=== PATIENT | female | born 1990 | race Caucasian/White ===

== ENCOUNTER 2016-08-26 11:33 | Emergency (ER) | payer OTHER ==
[2016-08-26 12:57] VITALS: BP 110/66
--- NOTE | 2016-08-26 13:12 | UC ---
Throat Pain/Nasal Yuri HPI - HPI Summary HPI Summary: SORE THROAT X 4 DAYS + COUGH, + NASAL CONGESTION NO FEVER. - History of Current Complaint Chief Complaint: UCRespiratory Stated Complaint: THROAT,COUGH Time Seen by Provider: 08/26/16 12:44 Hx Obtained From: Patient Hx Last Menstrual Period: 08/11/16 Onset/Duration: Gradual Onset, Lasting Days - 4, Still Present Severity: Moderate Cough: Nonproductive Associated Signs & Symptoms: Positive: Nasal Discharge. Negative: Wheezing, Hoarseness, Fever, Rash - Allergies/Home Medications Allergies/Adverse Reactions: Allergies Allergy/AdvReac Type Severity Reaction Status Date / Time Cefprozil [From Cefzil] Allergy Severe Hives Verified 04/02/15 11:05 Levofloxacin [From Levaquin] Allergy Severe Hives Verified 04/02/15 11:05 Codeine Allergy Mild Hives Verified 04/02/15 11:05 [From Tylenol with Codeine #3] Home Medications: Home Medications Dextromethorphan-Phenylephrine [Day Time Multi-Symptom Co] 2 cap PO PRN [History] Nexplanon IMPLANT DAILY 08/26/16 [History] PMH/Surg Hx/FS Hx/Imm Hx Respiratory History Of: Reports: Asthma - Surgical History Surgical History: Yes Surgery Procedure, Year, and Place: , 2009, [facility] - Family History Known Family History: Negative: Diabetes - Social History Alcohol Use: None Substance Use Type: None Smoking Status (MU): Light Every Day Tobacco Smoker Type: Cigarettes Amount Used/How Often: 1 PACK weekly Length of Time of Smoking/Using Tobacco: started at age 20 Have You Smoked in the Last Year: Yes Review of Systems Constitutional: Negative Skin: Negative Eyes: Negative ENT: Sore Throat, Nasal Discharge Respiratory: Cough Cardiovascular: Negative Gastrointestinal: Negative Genitourinary: Negative Motor: Negative All Other Systems Reviewed And Are Negative: Yes Physical Exam Triage Information Reviewed: Yes Appearance: Well-Appearing, No Pain Distress, Well-Nourished Vital Signs: Initial Vital Signs Temp 99 F 08/26/16 12:52 Pulse 50 08/26/16 12:52 Resp 14 08/26/16 12:52 BP 110/66 08/26/16 12:52 Pulse Ox 100 08/26/16 12:52 Vital Signs Reviewed: Yes Eye Exam: Normal Eyes: Positive: Conjunctiva Clear ENT: Positive: Normal ENT inspection, Hearing grossly normal, Pharyngeal erythema, Nasal congestion, TMs normal. Negative: Nasal drainage Neck exam: Normal Neck: Positive: Supple, Nontender, No Lymphadenopathy Respiratory: Positive: Chest non-tender, Lungs clear, Normal breath sounds Cardiovascular: Positive: RRR, No Murmur, Pulses Normal Abdominal Exam: Normal Neurological Exam: Normal Neurological: Positive: Alert Skin Exam: Normal Throat Pain/Nasal Course/Dx - Differential Dx/Diagnosis Provider Diagnoses: VIRAL PHARYNGITIS Discharge - Discharge Plan Condition: Stable Disposition: HOME Patient Education Materials: Pharyngitis (ED) Additional Instructions: NEGATIVE RAPID STREP VIRAL PHARYNGITIS
== END 2016-08-26 13:40 | disposition home or self-care (01) ==
LOC: UCCORT 11:33
DX: J02.9 Acute pharyngitis, unspecified (principal); Z88.1 Allergy status to other antibiotic agents; Z55.2 Failed school examinations; F17.210 Nicotine dependence, cigarettes, uncomplicated
CPT/HCPCS: 87651; 99211; G0463

== ENCOUNTER 2016-09-01 14:50 | Emergency (ER) | payer OTHER ==
[2016-09-01 17:01] VITALS: BP 95/69
--- NOTE | 2016-09-01 22:08 | UC ---
Respiratory Complaint HPI - HPI Summary HPI Summary: Patient arrives with CC of coughing fits since 2 weeks ago. They are now keeping her from sleep and are hurting her chest wall and back. She was seen in UC last week and diagnosed with URI. She was not given anything, but now states all symptoms are becoming worse. Denies congestion. Cough is a dry cough and come in fits. Worse at night, better in cold air. Denies N/V/C/D. Associated LEIGH during cough. - History of Current Complaint Chief Complaint: UCRespiratory Stated Complaint: COUGH,CHEST CONGESTION (SEEN LAST WEEK) Time Seen by Provider: 09/01/16 17:01 Hx Obtained From: Patient Hx Last Menstrual Period: 08/11/16 ?: No Onset/Duration: Gradual Onset Severity Initially: Severe Severity Currently: Severe Pain Intensity: 0 Pain Scale Used: 0-10 Numeric Character: Cough: Nonproductive Aggravating Factors: Recumbent Position Alleviating Factors: Bronchodilator, Upright Position Associated Signs And Symptoms: Positive: URI - Risk Factors Pulmonary Embolism Risk Factors: Negative Cardiac Risk Factors: Negative Pseudomonas Risk Factors: Negative Tuberculosis Risk Factors: Negative - Allergies/Home Medications Allergies/Adverse Reactions: Allergies Allergy/AdvReac Type Severity Reaction Status Date / Time Cefprozil [From Cefzil] Allergy Severe Hives Verified 09/01/16 16:57 Levofloxacin [From Levaquin] Allergy Severe Hives Verified 09/01/16 16:57 Codeine Allergy Mild Hives Verified 09/01/16 16:57 [From Tylenol with Codeine #3] Home Medications: Home Medications Phenylephrine-Brompheniramine- [Dimetapp Dm Cold & Cough 2.5-1-5 mg/5Ml] 1 tab PRN 09/01/16 [History] PMH/Surg Hx/FS Hx/Imm Hx Previously Healthy: Yes Respiratory History Of: Reports: Asthma - Surgical History Surgical History: Yes Surgery Procedure, Year, and Place: , 2009, [facility] - Family History Known Family History: Negative: Diabetes - Social History Occupation: Employed Full-time Lives: With Family Alcohol Use: None Substance Use Type: None Smoking Status (MU): Light Every Day Tobacco Smoker Type: Cigarettes Amount Used/How Often: 3 cigs/day Length of Time of Smoking/Using Tobacco: started at age 20 Have You Smoked in the Last Year: Yes - Immunization History Most Recent Influenza Vaccination: 2016 Review of Systems Constitutional: Fatigue Skin: Negative ENT: Negative Respiratory: Shortness Of Breath, Cough Cardiovascular: Chest Pain - chest wall pain Gastrointestinal: Negative Motor: Negative Neurovascular: Negative Musculoskeletal: Myalgia Neurological: Headache All Other Systems Reviewed And Are Negative: Yes Physical Exam Triage Information Reviewed: Yes Appearance: Well-Appearing, No Pain Distress Vital Signs: Initial Vital Signs Temp 98.5 F 09/01/16 16:58 Pulse 52 09/01/16 16:58 Resp 18 09/01/16 16:58 BP 95/69 09/01/16 16:58 Pulse Ox 98 09/01/16 16:58 Eye Exam: Normal Eyes: Positive: Conjunctiva Clear Dental Exam: Normal Neck exam: Normal Neck: Positive: Supple, Nontender Respiratory: Positive: Chest non-tender, Lungs clear Cardiovascular Exam: Normal Cardiovascular: Positive: RRR Musculoskeletal: Positive: Strength Intact, ROM Intact Neurological Exam: Normal Psychological Exam: Normal Psychological: Positive: Normal Response To Family Skin Exam: Normal UC Diagnostic Evaluation - Laboratory O2 Sat by Pulse Oximetry: 98 Respiratory Course/Dx - Course Course Of Treatment: Patient given short course 5 day prednisone, robitussin with codeine and an albuteral inhaler. Patient will follow up with PCP if symptoms become worse. - Differential Dx/Diagnosis Differential Diagnosis/HQI/PQRI: Bronchitis, Lower Resp Infection, Sinusitis Provider Diagnoses: cough Discharge - Discharge Plan Condition: Stable Disposition: HOME Prescriptions: Albuterol HFA INHALER* [Ventolin HFA Inhaler*] 1 puff INH Q4H PRN #1 mdi PRN Reason: Cough guaiFENesin/CODIEN 100MG-10MG* [Robitussin AC 100Mg-10Mg*] 10 ml PO Q4H PRN # 240 udc MDD 60 PRN Reason: Cough predniSONE TAB* [Deltasone TAB*] 50 mg PO ONCE #5 tab MDD 1 Patient Education Materials: Acute Cough (ED) Forms: *Work Release Referrals: No Primary Care Phys,NOPCP [Primary Care Provider] - Additional Instructions: Drink plenty of fluids. A humidifier in the home can help with congestion during the colder months. Take any medication prescribed to you as directed. If you have any questions regarding your medications, you may call the office or your pharmacist. If your symptoms fail to improve or worsen, please call your primary care provider; come back to urgent care or the emergency room. Albuterol inhaler as needed. Prednisone in the morning - 1 tab for 5 days. Robitussin with codeine - 2 teaspoons up to every 4 hours as needed for cough.
== END 2016-09-01 17:25 | disposition home or self-care (01) ==
LOC: UCCORT 14:50
DX: R05 Cough (principal); J45.909 Unspecified asthma, uncomplicated; Z88.1 Allergy status to other antibiotic agents; Z88.5 Allergy status to narcotic agent; F17.210 Nicotine dependence, cigarettes, uncomplicated
CPT/HCPCS: 99212; G0463

== ENCOUNTER 2016-10-21 12:22 | Emergency (ER) | payer OTHER ==
[2016-10-21 13:07] VITALS: BP 100/62
--- NOTE | 2016-10-21 13:16 | UC ---
Respiratory Complaint HPI - HPI Summary HPI Summary: cough x 5 days + chest congestion, sore throat, pnd, nasal congestion + fever, chills, body aches - History of Current Complaint Chief Complaint: UCRespiratory Stated Complaint: SORE THROAT COUGH FEVER Time Seen by Provider: 10/21/16 13:05 Hx Obtained From: Patient Hx Last Menstrual Period: 10/14/16 ?: No Onset/Duration: Gradual Onset, Lasting Days - 4, Still Present Timing: Constant Severity Initially: Moderate Severity Currently: Moderate Character: Cough: Productive - yellow Aggravating Factors: Exertion, Deep Breaths Alleviating Factors: Nothing Associated Signs And Symptoms: Positive: Fever, Chills, Wheezing, URI, Nasal Congestion. Negative: Dyspnea, Pleuritic Chest Pain, Hemoptysis, Dizziness, Calf Pain, Calf Swelling, Edema - Allergies/Home Medications Allergies/Adverse Reactions: Allergies Allergy/AdvReac Type Severity Reaction Status Date / Time Cefprozil [From Cefzil] Allergy Severe Hives Verified 10/21/16 13:00 Levofloxacin [From Levaquin] Allergy Severe Hives Verified 10/21/16 13:00 Codeine Allergy Mild Hives Verified 10/21/16 13:00 [From Tylenol with Codeine #3] Home Medications: Home Medications [id number] W/ APAP [Tylenol Cold & Flu Severe] 2 tab PO BID PRN [History Confirmed 10/21/16] PMH/Surg Hx/FS Hx/Imm Hx Respiratory History Of: Reports: Asthma - Surgical History Surgical History: Yes Surgery Procedure, Year, and Place: , 2009, [facility] - Family History Known Family History: Negative: Diabetes - Social History Alcohol Use: None Substance Use Type: None Smoking Status (MU): Light Every Day Tobacco Smoker Type: Cigarettes Amount Used/How Often: 3-4 cigs/day Length of Time of Smoking/Using Tobacco: started at age 20 Have You Smoked in the Last Year: Yes - Immunization History Most Recent Influenza Vaccination: 2016 Review of Systems Constitutional: Fever, Chills, Fatigue Skin: Negative Eyes: Negative ENT: Sore Throat, Nasal Discharge Respiratory: Cough Cardiovascular: Negative Gastrointestinal: Negative All Other Systems Reviewed And Are Negative: Yes Physical Exam Triage Information Reviewed: Yes Appearance: Well-Appearing, No Pain Distress, Well-Nourished Vital Signs: Initial Vital Signs Temp 98.9 F 10/21/16 13:03 Pulse 65 10/21/16 13:03 Resp 16 10/21/16 13:03 BP 100/62 10/21/16 13:03 Pulse Ox 97 10/21/16 13:03 Vital Signs Reviewed: Yes Eye Exam: Normal Eyes: Positive: Conjunctiva Clear ENT: Positive: Normal ENT inspection, Hearing grossly normal, Pharyngeal erythema, Nasal congestion, Nasal drainage, TMs normal Neck exam: Normal Neck: Positive: Supple, Nontender, No Lymphadenopathy Respiratory: Positive: Chest non-tender, Lungs clear, Normal breath sounds, No respiratory distress, No accessory muscle use Cardiovascular: Positive: RRR, No Murmur, Pulses Normal Abdominal Exam: Normal Skin Exam: Normal UC Diagnostic Evaluation - Laboratory O2 Sat by Pulse Oximetry: 97 Respiratory Course/Dx - Differential Dx/Diagnosis Provider Diagnoses: acute bronchitis Discharge - Discharge Plan Condition: Stable Disposition: HOME Prescriptions: Azithromycin TAB* [Zithromax TAB (Z-MARTHA) 250 mg #6 tabs] 2 tab PO .TODAY, THEN 1 DAILY #1 martha Patient Education Materials: Acute Bronchitis (ED) Forms: *Work Release Referrals: No Primary Care Phys,NOPCP [Primary Care Provider] - If Needed
== END 2016-10-21 13:27 | disposition home or self-care (01) ==
LOC: UCCORT 12:22
DX: J20.9 Acute bronchitis, unspecified (principal); J45.909 Unspecified asthma, uncomplicated; F17.210 Nicotine dependence, cigarettes, uncomplicated
CPT/HCPCS: 99212; G0463

== ENCOUNTER 2017-01-18 15:27 | Emergency (ER) | payer OTHER ==
[2017-01-18 15:52] VITALS: BP 96/67
--- NOTE | 2017-01-18 15:58 | UC ---
Respiratory Complaint HPI - History of Current Complaint Chief Complaint: UCGeneralIllness Stated Complaint: COUGH/CHILLS Time Seen by Provider: 01/18/17 15:47 Hx Obtained From: Patient Hx Last Menstrual Period: 01/05/17 ?: No Onset/Duration: Sudden Onset, Lasting Weeks - 1, Worse Since - onset. Timing: Constant Character: Cough: Productive - yellow to green. Alleviating Factors: Bronchodilator Associated Signs And Symptoms: Positive: Chills, Wheezing, URI, Nasal Congestion , Hoarseness, Sinus Discomfort Related History: Seasonal Allergies - Risk Factors Pulmonary Embolism Risk Factors: Smoking Cardiac Risk Factors: Smoking Tuberculosis Risk Factors: Smoking - Allergies/Home Medications Allergies/Adverse Reactions: Allergies Allergy/AdvReac Type Severity Reaction Status Date / Time Cefprozil [From Cefzil] Allergy Severe Hives Verified 01/18/17 15:44 Levofloxacin [From Levaquin] Allergy Severe Hives Verified 01/18/17 15:44 PMH/Surg Hx/FS Hx/Imm Hx Previously Healthy: Yes - Surgical History Surgical History: Yes Surgery Procedure, Year, and Place: , 2009, [facility] - Family History Known Family History: Positive: Cardiac Disease, Diabetes Negative: Hypertension - Social History Occupation: Employed Full-time Lives: With Family Alcohol Use: None Substance Use Type: None Smoking Status (MU): Light Every Day Tobacco Smoker Type: Cigarettes Amount Used/How Often: 3-4 cigs/day Length of Time of Smoking/Using Tobacco: started at age 20 Have You Smoked in the Last Year: Yes - Immunization History Most Recent Influenza Vaccination: 2016 Most Recent Tetanus Shot: UTD Most Recent Pneumonia Vaccination: N/A Review of Systems Constitutional: Fever, Chills ENT: Sore Throat, Ear Ache, Nasal Discharge Respiratory: Shortness Of Breath, Cough Neurological: Headache - sinus pain. All Other Systems Reviewed And Are Negative: Yes Physical Exam Triage Information Reviewed: Yes Appearance: No Pain Distress, Well-Nourished, Ill-Appearing Vital Signs: Initial Vital Signs Temp 99.2 F 01/18/17 15:45 Pulse 83 01/18/17 15:45 Resp 16 01/18/17 15:45 BP 96/67 01/18/17 15:45 Pulse Ox 97 01/18/17 15:45 Vital Signs Reviewed: Yes Eyes: Positive: Conjunctiva Clear ENT: Positive: Pharynx normal, Nasal congestion, TMs normal Neck exam: Normal Respiratory: Positive: Wheezing - diffuse inspiratory and expiratory wheezes. Cardiovascular Exam: Normal Musculoskeletal Exam: Normal Neurological Exam: Normal Psychological Exam: Normal Skin Exam: Normal Diagnostic Evaluation - Laboratory O2 Sat by Pulse Oximetry: 97 Respiratory Course/Dx - Differential Dx/Diagnosis Differential Diagnosis/HQI/PQRI: Asthma, Laryngitis, Sinusitis Provider Diagnoses: Acute URI. Acute sinusitis. Acute bronchospasm Discharge - Discharge Plan Condition: Stable Disposition: HOME Prescriptions: Albuterol HFA INHALER* [Ventolin HFA Inhaler*] 1 puff INH Q4H PRN #1 mdi PRN Reason: Cough Sulfamethox/Trimethoprim DS* [Bactrim DS 800/160 TAB*] 1 tab PO BID #20 tab predniSONE TAB* [Deltasone TAB*] 20 mg PO DAILY #18 tab Patient Education Materials: Upper Respiratory Infection (ED), Wheezing (ED), Sinusitis (ED), Prednisone (By mouth), Sulfamethoxazole/Trimethoprim (By mouth) Referrals: No Primary Care Phys,NOPCP [Primary Care Provider] - If Needed (If you get signs of yeast infection.) Additional Instructions: NEILMED SINUS RINSE: CHECK OUT AT [facility] Saline nasal wash helps with mucous, allergies and congestion. It can be used up to twice a day or only as needed. Use lukewarm tap water. It does not have to be sterilized or distilled water. Do 1/3 on each side and snort out of both nostrils. Repeat the process with 1/6 of the bottle on each side with snorting in between to finish the solution in the bottle Smoking Cessation Tricks. 1. Cut down by 1 cigarette per day every 2-3 days. Write the number of smokes for that day on the calendar. 2. Identify triggers to smoking: after meals, on the phone, in the car, with coffee, on breaks at work, etc. 3. Formulate a plan with a behavior to replace the smoking. Fireballs in the car , doodle pad on the phone, flavored creamer for the coffee, go for a walk after a meal or on break at work. 4. For stress smokes do deep breathing relaxation. Breath deep in through the nose hold the breath in for a few seconds then breath out slowly through the mouth.
== END 2017-01-18 16:23 | disposition home or self-care (01) ==
LOC: UCCORT 15:27
DX: J06.9 Acute upper respiratory infection, unspecified (principal); J01.90 Acute sinusitis, unspecified; J98.01 Acute bronchospasm; Z88.1 Allergy status to other antibiotic agents; F17.210 Nicotine dependence, cigarettes, uncomplicated
CPT/HCPCS: 99212; G0463

== ENCOUNTER 2017-11-24 09:06 | Emergency (ER) | payer OTHER ==
[2017-11-24 09:50] VITALS: BP 98/74
--- NOTE | 2017-11-24 10:01 | UC ---
Throat Pain/Nasal Yuri HPI - HPI Summary HPI Summary: sore throat x 2 days, + nasal congestion, cough no fever, + chills - History of Current Complaint Chief Complaint: UCGeneralIllness Stated Complaint: SORE THROAT COUGH Time Seen by Provider: 11/24/17 09:50 Hx Obtained From: Patient Hx Last Menstrual Period: 01/05/17 Onset/Duration: Gradual Onset, Lasting Days - 2, Still Present Severity: Moderate Pain Intensity: 7 Cough: Nonproductive Associated Signs & Symptoms: Positive: Nasal Discharge. Negative: Dysphagia, FB Sensation, Drooling, Wheezing, Hoarseness, Sinus Discomfort, Fever, Rash - Allergies/Home Medications Allergies/Adverse Reactions: Allergies Allergy/AdvReac Type Severity Reaction Status Date / Time MS Cefprozil [From Cefzil] Allergy Severe Hives Verified 01/18/17 15:44 MS Levofloxacin Allergy Severe Hives Verified 01/18/17 15:44 [From Levaquin] Home Medications: Home Medications Loratadine [Claritin] 10 mg PO DAILY PRN 11/24/17 [History Confirmed 11/24/17] PMH/Surg Hx/FS Hx/Imm Hx - Additional Past Medical History Additional PMH: Gastroparesis Respiratory History: Asthma - Surgical History Surgical History: Yes Surgery Procedure, Year, and Place: , 2009, [facility] - Family History Known Family History: Positive: Cardiac Disease, Diabetes Negative: Hypertension - Social History Alcohol Use: None Substance Use Type: None Smoking Status (MU): Former Smoker Type: Cigarettes Amount Used/How Often: 3-4 cigs/day Length of Time of Smoking/Using Tobacco: started at age 20 Have You Smoked in the Last Year: Yes - Immunization History Most Recent Influenza Vaccination: 2016 Most Recent Tetanus Shot: UTD Most Recent Pneumonia Vaccination: N/A Review of Systems Constitutional: Chills, Fatigue Skin: Negative Eyes: Negative ENT: Sore Throat, Nasal Discharge Respiratory: Cough Cardiovascular: Negative Gastrointestinal: Negative Genitourinary: Negative Is Patient Immunocompromised?: No All Other Systems Reviewed And Are Negative: Yes Physical Exam Triage Information Reviewed: Yes Appearance: Well-Appearing, No Pain Distress, Well-Nourished Vital Signs: Initial Vital Signs Temp 98.3 F 11/24/17 09:46 Pulse 61 11/24/17 09:46 Resp 17 11/24/17 09:46 BP 98/74 11/24/17 09:46 Pulse Ox 98 11/24/17 09:46 Vital Signs Reviewed: Yes Eyes: Positive: Conjunctiva Clear ENT: Positive: Normal ENT inspection, Hearing grossly normal, Pharyngeal erythema, TMs normal. Negative: Tonsillar swelling, Tonsillar exudate, Trismus Neck: Positive: Supple, Nontender, No Lymphadenopathy Respiratory: Positive: Chest non-tender, Lungs clear, Normal breath sounds Cardiovascular: Positive: RRR, No Murmur, Pulses Normal Abdominal Exam: Normal Skin Exam: Normal Throat Pain/Nasal Course/Dx - Differential Dx/Diagnosis Provider Diagnoses: pharyngitis Discharge - Sign-Out/Discharge Documenting (check all that apply): Discharge/Admit/Transfer - Discharge Plan Condition: Stable Disposition: HOME Patient Education Materials: Pharyngitis (ED) Referrals: No Primary Care Phys,NOPCP [Primary Care Provider] - If Needed - Billing Disposition and Condition Condition: STABLE Disposition: Home
== END 2017-11-24 10:18 | disposition home or self-care (01) ==
LOC: UCCORT 09:06
DX: J02.9 Acute pharyngitis, unspecified (principal); Z88.1 Allergy status to other antibiotic agents; Z87.891 Personal history of nicotine dependence
CPT/HCPCS: 87651; 99211; G0463

== ENCOUNTER 2018-01-10 09:14 | Emergency (ER) | payer OTHER ==
[2018-01-10 09:49] VITALS: BP 114/73
--- NOTE | 2018-01-10 10:37 | UC ---
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 Painful and swollen today. Denies any trauma to that knee. Does have history of torn meniscus in 9th grade. " -She never had surgery. Care was on medial meniscus. She occasionally does have pain and a flareup but not in quite some time. Today's pain is consistent with previous meniscal pain. No locking. No erythema. Denies . She is working today and knee gave out while at work. Pain is medial left knee. Swelling is medial left knee. No posterior swelling or erythema. No calf pain. No Erythema. -She has been taking prescription 600 mg of ibuprofen that she had left over from delivery. It does help. - History of Current Complaint Chief Complaint: UCLowerExtremity Stated Complaint: LEFT KNEE PAIN Time Seen by Provider: 01/10/18 10:36 Hx Last Menstrual Period: 12/27/17 Pain Intensity: 10 - Allergies/Home Medications Allergies/Adverse Reactions: Allergies Allergy/AdvReac Type Severity Reaction Status Date / Time cefprozil Allergy Hives Verified 01/10/18 09:50 levofloxacin Allergy Hives Verified 01/10/18 09:50 Home Medications: Home Medications medroxyPROGESTERone ACETATE* [DEPO-Provera*] 1 dose IM ONCE 01/10/18 [History Confirmed 01/10/18] PMH/Surg Hx/FS Hx/Imm Hx Previously Healthy: Yes - Surgical History Surgical History: Yes Surgery Procedure, Year, and Place: , 2009, [facility] - Family History Known Family History: Positive: Cardiac Disease, Diabetes Negative: Hypertension - Social History Alcohol Use: None Substance Use Type: None Smoking Status (MU): Former Smoker Type: Cigarettes Amount Used/How Often: 3-4 cigs/day Length of Time of Smoking/Using Tobacco: started at age 20 Have You Smoked in the Last Year: Yes - Immunization History Most Recent Influenza Vaccination: 2016 Most Recent Tetanus Shot: UTD Most Recent Pneumonia Vaccination: N/A Review of Systems Constitutional: Negative Skin: Negative Eyes: Negative ENT: Negative Respiratory: Negative Cardiovascular: Negative Gastrointestinal: Negative Genitourinary: Negative Motor: Negative Neurovascular: Negative Musculoskeletal: Other: - See above Neurological: Negative Psychological: Negative Is Patient Immunocompromised?: No All Other Systems Reviewed And Are Negative: Yes Physical Exam Triage Information Reviewed: Yes Appearance: Well-Appearing, No Pain Distress, Well-Nourished Vital Signs: Initial Vital Signs Temp 98.7 F 01/10/18 09:47 Pulse 51 01/10/18 09:47 Resp 14 01/10/18 09:47 BP 114/73 01/10/18 09:47 Pulse Ox 100 01/10/18 09:47 Vital Signs Reviewed: Yes Eye Exam: Normal ENT Exam: Normal Respiratory Exam: Normal Respiratory: Positive: Lungs clear Cardiovascular Exam: Normal Cardiovascular: Positive: RRR Musculoskeletal: Positive: Other: - left knee w/ trace swelling medially. there is no warmth or erythema. no swelling/erythema in calf or posterior knee or thigh. no calf or polpliteal fossa tenderness. + Lachmans. + mild valgus pain. no bruising. Neurological Exam: Normal Psychological Exam: Normal Skin Exam: Normal Knee Pain Course/Dx - Course Course Of Treatment: -no evidence of recent trauma. prefers to have xrays done at ortho if necessary. -ice, rest. NSAIDs. -f/u with ortho. will prob recommend PT. -needs OOW note - Differential Dx/Diagnosis Differential Diagnosis/HQI/PQRI: Cellulitis, Contusion, Internal Derangement Of Knee, Sprain, Strain Provider Diagnoses: left knee pain Discharge - Sign-Out/Discharge Documenting (check all that apply): Patient Departure - Discharge Plan Condition: Stable Disposition: HOME Prescriptions: Ibuprofen TAB* [Motrin TAB* 600 MG] 600 mg PO Q8H PRN 15 Days #30 tab PRN Reason: Pain Patient Education Materials: Meniscus Tear (ED) Forms: *Work Release Referrals: Emilie Rios MD [Primary Care Provider] - Patrice Hurt MD [Medical Doctor] - 2 Days Additional Instructions: Make sure to follow up with ortho. They may recommend PT before recommending any intervention. Continue with plenty of ice with a towel barrier. We haev given you a prescription for more ibuprofen as well. - Billing Disposition and Condition Condition: STABLE Disposition: Home
== END 2018-01-10 11:04 | disposition home or self-care (01) ==
LOC: UCCORT 09:14
DX: M25.562 Pain in left knee (principal); Z88.1 Allergy status to other antibiotic agents; Z87.891 Personal history of nicotine dependence
CPT/HCPCS: 99212; G0463

== ENCOUNTER 2018-05-13 14:55 | Emergency (ER) | payer OTHER ==
[2018-05-13 15:20] VITALS: BP 117/65
--- NOTE | 2018-05-13 15:31 | UC ---
Upper Extremity HPI - HPI Summary HPI Summary: Pt presents with sudden onset of left left pain and swelling that began this morning. Pt denies injury or previous trauma. - History of Current Complaint Chief Complaint: UCUpperExtremity Stated Complaint: LEFT ARM SWELLING Time Seen by Provider: 05/13/18 15:15 Hx Obtained From: Patient Hx Last Menstrual Period: 05/11/18 ?: No Onset/Duration: Sudden Onset, Lasting Hours Severity Initially: Moderate Severity Currently: Moderate Pain Intensity: 7 Location Of Pain: Is Discrete @ - left elbow at lateral epicondyle. Character: Dull, Aching, Stiffness, Burning Aggravating Factor(s): Movement, Lifting, Flexion, Extension Alleviating Factor(s): Rest Associated Signs And Symptoms: Positive: Swelling Related History: Dominant Hand Right - Risk Factors Non-Orthopedic Risk Factor: Negative DVT Risk Factors: Negative Septic Arthritis Risk Factor: Negative Compartment Syndrome Risk Factors: Pain - Allergies/Home Medications Allergies/Adverse Reactions: Allergies Allergy/AdvReac Type Severity Reaction Status Date / Time cefprozil Allergy Hives Verified 05/13/18 15:13 levofloxacin Allergy Hives Verified 05/13/18 15:13 Home Medications: Home Medications Ibuprofen TAB* [Motrin TAB* 800 MG] 800 mg PO Q6H PRN 05/13/18 [History Confirmed 05/13/18] PMH/Surg Hx/FS Hx/Imm Hx Previously Healthy: Yes - Surgical History Surgical History: Yes Surgery Procedure, Year, and Place: , 2009, [facility];. TUBAL LIGATION, JAN 2018 - Family History Known Family History: Positive: Cardiac Disease, Diabetes Negative: Hypertension - Social History Occupation: Employed Full-time Lives: With Family Alcohol Use: Rare Substance Use Type: None Smoking Status (MU): Light Every Day Tobacco Smoker Type: Cigarettes Amount Used/How Often: 3-4 cigs/day Length of Time of Smoking/Using Tobacco: started at age 20 Have You Smoked in the Last Year: Yes - Immunization History Most Recent Influenza Vaccination: 2016 Most Recent Tetanus Shot: UTD Most Recent Pneumonia Vaccination: N/A Review of Systems All Other Systems Reviewed And Are Negative: Yes Constitutional: Positive: Negative Skin: Positive: Negative Eyes: Positive: Negative ENT: Positive: Negative Respiratory: Positive: Negative Cardiovascular: Positive: Negative Gastrointestinal: Positive: Negative Genitourinary: Positive: Negative Motor: Positive: Decreased ROM - pain with ROM Neurovascular: Positive: Negative Musculoskeletal: Positive: Arthralgia, Myalgia Neurological: Positive: Negative Psychological: Positive: Negative Is Patient Immunocompromised?: No Physical Exam Triage Information Reviewed: Yes Appearance: Well-Appearing Vital Signs: Initial Vital Signs Temp 99 F 05/13/18 15:14 Pulse 66 05/13/18 15:14 Resp 17 05/13/18 15:14 BP 117/65 05/13/18 15:14 Pulse Ox 100 05/13/18 15:14 Vital Signs Reviewed: Yes Eye Exam: Normal ENT Exam: Normal Dental Exam: Normal Neck exam: Normal Respiratory Exam: Normal Respiratory: Positive: No respiratory distress Cardiovascular Exam: Normal Musculoskeletal: Positive: ROM Intact - pain with ROM Neurological Exam: Normal Psychological Exam: Normal Skin Exam: Normal Upper Extremity Course/Dx - Differential Dx/Diagnosis Differential Diagnosis/HQI/PQRI: Strain Provider Diagnosis: Left tennis elbow Discharge - Sign-Out/Discharge Documenting (check all that apply): Patient Departure All imaging exams completed and their final reports reviewed: No Studies - Discharge Plan Condition: Stable Disposition: HOME Prescriptions: predniSONE TAB* [Deltasone 20 MG TAB*] 20 mg PO DAILY #4 tab Patient Education Materials: Tennis Elbow (ED), Ice Pack Application (ED) Referrals: Emilie Rios MD [Primary Care Provider] - If Needed Paige Sargent MD [Medical Doctor] - If Needed - Billing Disposition and Condition Condition: STABLE Disposition: Home
== END 2018-05-13 15:39 | disposition home or self-care (01) ==
LOC: UCCORT 14:55
DX: M77.12 Lateral epicondylitis, left elbow (principal); Z88.1 Allergy status to other antibiotic agents; F17.210 Nicotine dependence, cigarettes, uncomplicated
CPT/HCPCS: 99212; G0463

== ENCOUNTER 2018-07-02 10:38 | Emergency (ER) | payer MEDICAID, OTHER ==
[2018-07-02 11:26] VITALS: BP 110/63
--- NOTE | 2018-07-02 13:37 | UC ---
Complaint Female HPI - HPI Summary HPI Summary: 27-year-old woman comes to clinic today with a chief complaint of vaginal discharge and dysuria. Couple days ago patient had burning with urination and that gradually improved. The last day she's noticed some yellow discharge. Patient is sexually active. She denies any concern of an STI. No fevers or chills. Patient reports she believes this is bacterial vaginitis that she's had this before. - History Of Current Complaint Chief Complaint: UCGU Stated Complaint: URINARY Time Seen by Provider: 07/02/18 13:28 Hx Last Menstrual Period: "The end of May." Pain Intensity: 0 - Allergies/Home Medications Allergies/Adverse Reactions: Allergies Allergy/AdvReac Type Severity Reaction Status Date / Time cefprozil Allergy Hives Verified 07/02/18 11:21 levofloxacin Allergy Hives Verified 07/02/18 11:21 PMH/Surg Hx/FS Hx/Imm Hx Previously Healthy: Yes - Surgical History Surgical History: Yes Surgery Procedure, Year, and Place: , 2009, [facility];. TUBAL LIGATION, JAN 2018 - Family History Known Family History: Positive: Cardiac Disease, Diabetes Negative: Hypertension - Social History Alcohol Use: Rare Substance Use Type: Marijuana Smoking Status (MU): Former Smoker Type: Cigarettes Amount Used/How Often: 3-4 cigs/day Length of Time of Smoking/Using Tobacco: started at age 20 Have You Smoked in the Last Year: Yes - Immunization History Most Recent Influenza Vaccination: 2015 Most Recent Tetanus Shot: UTD Most Recent Pneumonia Vaccination: N/A Review of Systems All Other Systems Reviewed And Are Negative: Yes Constitutional: Positive: Negative Skin: Positive: Negative Eyes: Positive: Negative ENT: Positive: Negative Respiratory: Positive: Negative Cardiovascular: Positive: Negative Gastrointestinal: Positive: Negative Genitourinary: Positive: Dysuria, Vaginal/Penile Discharge Motor: Positive: Negative Neurovascular: Positive: Negative Musculoskeletal: Positive: Negative Neurological: Positive: Negative Psychological: Positive: Negative Is Patient Immunocompromised?: No Physical Exam Triage Information Reviewed: Yes Appearance: Well-Appearing, No Pain Distress, Well-Nourished Vital Signs: Initial Vital Signs Temp 98.3 F 07/02/18 11:19 Pulse 56 07/02/18 11:19 Resp 16 07/02/18 11:19 BP 110/63 07/02/18 11:19 Pulse Ox 100 07/02/18 11:19 Vital Signs Reviewed: Yes Eye Exam: Normal Eyes: Positive: Conjunctiva Clear Neck exam: Normal Neck: Positive: Supple Respiratory: Positive: Lungs clear, Normal breath sounds, No respiratory distress Cardiovascular: Positive: RRR Abdomen Description: Positive: Nontender, Soft. Negative: CVA Tenderness (R), CVA Tenderness (L) Bowel Sounds: Positive: Present Musculoskeletal Exam: Normal Musculoskeletal: Positive: Strength Intact, ROM Intact Neurological Exam: Normal Neurological: Positive: Alert, Muscle Tone Normal Psychological Exam: Normal Psychological: Positive: Age Appropriate Behavior Skin Exam: Normal Complaint Female Dx - Course Course Of Treatment: We discussed the urine results. Patient does have some leukocytes otherwise is negative. We discussed the potential diagnoses. Patient denies any concern of STI. She believes this is bacterial vaginitis which she's had in the past. We discussed pelvic exam for further evaluation. At this time the patient prefers to be treated empirically and then if she does not improve or worsens she will get reevaluated. - Differential Dx/Diagnosis Provider Diagnosis: Vaginitis Discharge - Sign-Out/Discharge Documenting (check all that apply): Patient Departure All imaging exams completed and their final reports reviewed: No Studies - Discharge Plan Condition: Stable Disposition: HOME Prescriptions: Fluconazole 150 MG TAB* [Diflucan 150 MG TAB*] 150 mg PO ONCE #1 tablet metroNIDAZOLE [Flagyl] 500 mg PO BID #14 tablet Patient Education Materials: Bacterial Vaginosis (ED), Vaginitis (ED) Referrals: Emilie Rios MD [Primary Care Provider] - Additional Instructions: FOLLOW UP WITH YOUR DOCTOR IF NOT COMPLETELY IMPROVED. GET RECHECKED SOONER WITH ANY WORSENING OF YOUR CONDITION; PAIN, FEVER, YOUR SYMPTOMS PERSIST OR WORSEN OR QUESTIONS OR CONCERNS. - Billing Disposition and Condition Condition: STABLE Disposition: Home
== END 2018-07-02 13:41 | disposition home or self-care (01) ==
LOC: UCCORT 10:38
DX: N76.0 Acute vaginitis (principal); Z88.1 Allergy status to other antibiotic agents; Z87.891 Personal history of nicotine dependence
CPT/HCPCS: 81003; 84702; 87086; 99212; G0463

== ENCOUNTER 2018-08-03 16:35 | Emergency (ER) | payer MEDICAID, OTHER ==
[2018-08-03 17:45] VITALS: BP 111/70
--- NOTE | 2018-08-03 18:07 | UC ---
Ear Complaint HPI - HPI Summary HPI Summary: 27 yo female with recent flu now with right otalgia x 2 days no fever no LEIGH - History of Current Complaint Chief Complaint: UCEar Stated Complaint: RT EAR COMPLAINT Time Seen by Provider: 08/03/18 17:57 Hx Obtained From: Patient Hx Last Menstrual Period: 07/20/17 Onset/Duration: Gradual Onset Severity Initially: Mild Severity Currently: Severe Pain Intensity: 8 Pain Scale Used: 0-10 Numeric Associated Signs/Symptoms: Positive: URI Symptoms - Allergies/Home Medications Allergies/Adverse Reactions: Allergies Allergy/AdvReac Type Severity Reaction Status Date / Time cefprozil Allergy Hives Verified 08/03/18 17:46 levofloxacin Allergy Hives Verified 08/03/18 17:46 Home Medications: Home Medications Oseltamivir CAP* [Tamiflu CAP*] 75 mg PO BID 08/03/18 [History Confirmed ] Phenylephrine/Dm/Acetaminop/GG [Tylenol Cold-Flu Severe Caplet] 1 each PO DAILY 08/03/18 [History Confirmed 08/03/18] PMH/Surg Hx/FS Hx/Imm Hx Previously Healthy: Yes Respiratory History: Asthma - Surgical History Surgical History: Yes Surgery Procedure, Year, and Place: , 2009, [facility];. TUBAL LIGATION, JAN 2018 - Family History Known Family History: Positive: Cardiac Disease, Diabetes Negative: Hypertension - Social History Alcohol Use: Rare Substance Use Type: Marijuana Smoking Status (MU): Former Smoker Type: Cigarettes Amount Used/How Often: 3-4 cigs/day Length of Time of Smoking/Using Tobacco: started at age 20 Have You Smoked in the Last Year: Yes - Immunization History Most Recent Influenza Vaccination: 2016 Most Recent Tetanus Shot: UTD Most Recent Pneumonia Vaccination: N/A Review of Systems All Other Systems Reviewed And Are Negative: Yes Constitutional: Positive: Negative Skin: Positive: Negative Eyes: Positive: Negative ENT: Positive: Ear Ache Respiratory: Positive: Negative Cardiovascular: Positive: Negative Gastrointestinal: Positive: Negative Genitourinary: Positive: Negative Motor: Positive: Negative Neurovascular: Positive: Negative Musculoskeletal: Positive: Negative Neurological: Positive: Negative Psychological: Positive: Negative Physical Exam Triage Information Reviewed: Yes Appearance: Well-Appearing, No Pain Distress, Well-Nourished Vital Signs: Initial Vital Signs Temp 98.7 F 08/03/18 17:42 Pulse 57 08/03/18 17:42 Resp 15 08/03/18 17:42 BP 111/70 08/03/18 17:42 Pulse Ox 99 08/03/18 17:42 Vital Signs Reviewed: Yes Eyes: Positive: Conjunctiva Clear ENT: Positive: Hearing grossly normal, Uvula midline, Other - right tragal tenderness and sl EAC swelling. Negative: Nasal congestion, Nasal drainage, TMs normal - right red/bulging, Tonsillar swelling, Tonsillar exudate, Trismus, Muffled voice, Hoarse voice, Dental tenderness, Sinus tenderness Neck: Positive: Supple, Nontender, No Lymphadenopathy Respiratory: Positive: Lungs clear, Normal breath sounds, No respiratory distress Cardiovascular: Positive: RRR, No Murmur Musculoskeletal: Positive: Strength Intact, ROM Intact Neurological: Positive: Alert Psychological Exam: Normal Skin Exam: Normal Ear Complaint Course/Dx - Differential Dx/Diagnosis Provider Diagnosis: Right otitis media, Right otitis externa Discharge - Sign-Out/Discharge Documenting (check all that apply): Patient Departure All imaging exams completed and their final reports reviewed: No Studies - Discharge Plan Condition: Stable Disposition: HOME Prescriptions: Amoxicillin PO (*) [Amoxicillin 500 MG CAP*] 500 mg PO BID #20 cap Neomyc/Polym/HC 1% OTIC SUSP* [Cortisporin Otic Susp 1%*] 4 drop RIGHT EAR QID 7 Days #1 btl Patient Education Materials: Ear Infection (ED) Referrals: Emilie Rios MD [Primary Care Provider] - 6 Days (if not better) - Billing Disposition and Condition Condition: STABLE Disposition: Home
== END 2018-08-03 18:12 | disposition home or self-care (01) ==
LOC: UCCORT 16:35
DX: H66.91 Otitis media, unspecified, right ear (principal); H60.91 Unspecified otitis externa, right ear; J45.909 Unspecified asthma, uncomplicated; Z87.891 Personal history of nicotine dependence; Z88.1 Allergy status to other antibiotic agents
CPT/HCPCS: 99212; G0463

== ENCOUNTER 2019-01-16 11:16 | Emergency (ER) | payer MEDICAID, OTHER ==
[2019-01-16 11:36] VITALS: BP 103/65
--- NOTE | 2019-01-16 12:08 | UC ---
Lower Extremity/Ankle HPI - HPI Summary HPI Summary: R knee pain after falling downsteps with wet socks. did not injure any other part of body. nothing makes it better, bending knee makes it worse. Of note pt states - History of Current Complaint Chief Complaint: UCLowerExtremity Stated Complaint: RIGHT KNEE SWELLING Time Seen by Provider: 01/16/19 12:02 Hx Obtained From: Patient Hx Last Menstrual Period: 01/06/19 Pain Intensity: 8 Pain Scale Used: 0-10 Numeric Aggravating Factor(s): Ambulation Alleviating Factor(s): Rest Able to Bear Weight: Yes - Allergies/Home Medications Allergies/Adverse Reactions: Allergies Allergy/AdvReac Type Severity Reaction Status Date / Time cefprozil Allergy Hives Verified 01/16/19 11:37 levofloxacin Allergy Hives Verified 01/16/19 11:37 Home Medications: Home Medications Acetaminophen [Acetaminophen Extra Strength] 500 mg PO Q4HR PRN 01/16/19 [ History Confirmed 01/16/19] Ibuprofen TAB* [Advil TAB*] 800 mg PO Q6H PRN 01/16/19 [History Confirmed ] Metoclopramide HCl [Reglan] 5 mg PO Q6HR 01/16/19 [History Confirmed 01/16/19] PMH/Surg Hx/FS Hx/Imm Hx - Additional Past Medical History Additional PMH: no chronic illness Previously Healthy: Yes - Surgical History Surgical History: Yes Surgery Procedure, Year, and Place: , 2009, [facility];. TUBAL LIGATION, JAN 2018 - Family History Known Family History: Positive: Cardiac Disease, Diabetes Negative: Hypertension - Social History Alcohol Use: Rare Substance Use Type: Marijuana Smoking Status (MU): Light Every Day Tobacco Smoker Type: Cigarettes Amount Used/How Often: 3-4 cigs/day Length of Time of Smoking/Using Tobacco: started at age 20 Have You Smoked in the Last Year: No - Immunization History Most Recent Influenza Vaccination: 2016 Most Recent Tetanus Shot: UTD Most Recent Pneumonia Vaccination: N/A Review of Systems All Other Systems Reviewed And Are Negative: Yes Constitutional: Negative: Fever Skin: Negative: Bruising Musculoskeletal: Positive: Arthralgia - r knee, Edema - r knee. Negative: Calf Tenderness, Decreased ROM Neurological: Negative: Paresthesia, Numbness Physical Exam Triage Information Reviewed: Yes Appearance: Well-Appearing Vital Signs: Initial Vital Signs Temp 99.4 F 01/16/19 11:26 Pulse 63 01/16/19 11:26 Resp 16 01/16/19 11:26 BP 103/65 01/16/19 11:26 Pulse Ox 99 01/16/19 11:26 Respiratory Exam: Normal Cardiovascular Exam: Normal Cardiovascular: Positive: Pulses Normal - R pedal pulses Musculoskeletal: Positive: Strength Intact - R knee, ROM Intact - R knee, Edema @ - minimal at medial aspect of R knee Neurological: Positive: Alert Diagnostics - Radiology No standard instances Radiology Interpretation Completed By: Radiologist Summary of Radiographic Findings: IMPRESSION: NO ACUTE OSSEOUS INJURY. IF SYMPTOMS PERSIST, RECOMMEND REPEAT IMAGING. Lower Extremity Course/Dx - Course Course Of Treatment: Worsening R knee pain after falling 3 days ago down steps; slipped. She has hx of unrepaired ACL on R knee and feels there's a slight exacerbation. Vitals good. on exam R knee minimally swollen and minimally tender, good ROM and good pedal pulses' no bruising. No neuro deficits. XRAY was neg. Advised to rest, ice and wrap R knee for support. She declined note for work. - Differential Dx/Diagnosis Differential Diagnosis/HQI/PQRI: Arthritis, Compartment Syndrome, Sprain, Tendonitis, Tenosynovitis Provider Diagnosis: Knee pain, right Discharge - Sign-Out/Discharge Documenting (check all that apply): Patient Departure All imaging exams completed and their final reports reviewed: Yes - Discharge Plan Condition: Good Disposition: HOME Patient Education Materials: Knee Pain (ED) Referrals: Emilie Rios MD [Primary Care Provider] - Additional Instructions: If worsening please follow up with your primary care provider. - Billing Disposition and Condition Condition: GOOD Disposition: Home
== END 2019-01-16 12:47 | disposition home or self-care (01) ==
LOC: UCCORT 11:16
DX: W10.9XXA Fall (on) (from) unspecified stairs and steps, initial encounter (principal); Y93.9 Activity, unspecified; Y92.9 Unspecified place or not applicable; F17.210 Nicotine dependence, cigarettes, uncomplicated
CPT/HCPCS: 99212; G0463

== ENCOUNTER 2019-02-15 12:17 | Emergency (ER) | payer OTHER ==
[2019-02-15 12:33] VITALS: BP 115/74
--- NOTE | 2019-02-15 12:39 | UC ---
Ear Complaint HPI - HPI Summary HPI Summary: 28-year-old female presents with one-week history of right ear pain, sore throat , nasal congestion, and runny nose. Associated with some body aches. States she received her flu shot about a week ago. Denies fever, ear drainage, tinnitus, vertigo, dysphagia, or cough. - History of Current Complaint Chief Complaint: UCGeneralIllness Stated Complaint: BODY ACHES,EAR PAIN Time Seen by Provider: 02/15/19 12:34 Hx Obtained From: Patient Hx Last Menstrual Period: 02/01/19 Pain Intensity: 6 - Allergies/Home Medications Allergies/Adverse Reactions: Allergies Allergy/AdvReac Type Severity Reaction Status Date / Time cefprozil Allergy Hives Verified 02/15/19 12:31 levofloxacin Allergy Hives Verified 02/15/19 12:31 PMH/Surg Hx/FS Hx/Imm Hx Previously Healthy: Yes - Denies significant PMH - Surgical History Surgical History: Yes Surgery Procedure, Year, and Place: , 2009, [facility];. TUBAL LIGATION, JAN 2018 - Family History Known Family History: Positive: Cardiac Disease, Diabetes Negative: Hypertension - Social History Occupation: Employed Full-time Lives: Alone Alcohol Use: Rare Substance Use Type: Marijuana Substance Use Comment - Amount & Last Used: occasionally Smoking Status (MU): Light Every Day Tobacco Smoker Type: Cigarettes Amount Used/How Often: 3-4 cigs/day Length of Time of Smoking/Using Tobacco: started at age 20 Have You Smoked in the Last Year: No - Immunization History Most Recent Influenza Vaccination: 2016 Most Recent Tetanus Shot: UTD Most Recent Pneumonia Vaccination: N/A Review of Systems All Other Systems Reviewed And Are Negative: Yes Constitutional: Positive: Chills. Negative: Fever Skin: Negative: Rash Eyes: Negative: Drainage, Eye Redness ENT: Positive: Ear Ache. Negative: Sore Throat, Nasal Discharge, Sinus Congestion, Sinus Pain/Tenderness Respiratory: Negative: Cough Cardiovascular: Positive: Negative Gastrointestinal: Positive: Negative Genitourinary: Positive: Negative Musculoskeletal: Positive: Myalgia Neurological: Positive: Negative Is Patient Immunocompromised?: No Physical Exam - Summary Physical Exam Summary: GENERAL APPEARANCE: Well developed, well nourished, alert and cooperative, and appears to be in no acute distress. EYES: Conjunctiva clear. No drainage. EARS: External auditory canals and tympanic membranes clear, hearing grossly intact. NOSE: Mild nasal congestion. No nasal discharge. THROAT: Mild pharyngeal erythema. Tonsils surgically absent. Uvula midline. NECK: Neck supple, non-tender without lymphadenopathy. CARDIAC: Normal S1 and S2. No S3, S4 or murmurs. Rhythm is regular. There is no peripheral edema, cyanosis or pallor. Extremities are warm and well perfused. Capillary refill is less than 2 seconds. Peripheral pulses intact. LUNGS: Clear to auscultation without rales, rhonchi, wheezing or diminished breath sounds. ABDOMEN: Positive bowel sounds. Soft, nondistended, nontender. No guarding or rebound. No masses or hepatosplenomegally. MUSKULOSKELETAL: ROM intact to all extremities. No joint erythema or tenderness. Normal muscular development. Normal gait. SKIN: Skin normal color, texture and turgor with no lesions or eruptions. Triage Information Reviewed: Yes Vital Signs: Initial Vital Signs Temp 98.8 F 02/15/19 12:31 Pulse 57 02/15/19 12:31 Resp 15 02/15/19 12:31 BP 115/74 02/15/19 12:31 Pulse Ox 100 02/15/19 12:31 Vital Signs Reviewed: Yes Ear Complaint Course/Dx - Course Course Of Treatment: 28-year-old female presents with one-week history of right ear pain, sore throat , nasal congestion, and runny nose. Associated with some body aches. States she received her flu shot about a week ago. Denies fever, ear drainage, tinnitus, vertigo, dysphagia, or cough. Afebrile. Vital signs stable. Patient had mild nasal congestion, mild pharyngeal erythema, surgically absent tonsils, no cervical lymphadenopathy, clear bilateral breath sounds, and otherwise unremarkable exam. Rapid strep test was negative. Recommending symptomatic treatment for a viral upper respiratory infection. Patient is to follow-up with her primary care provider in 3-5 days if symptoms are not improving. Anticipatory guidance and warning symptoms were reviewed with the patient. Verbalizes understanding and agrees with plan of care. - Differential Dx/Diagnosis Differential Diagnosis/HQI/PQRI: Otitis Externa, Otitis Media, Perforated TM Provider Diagnosis: Viral URI Discharge ED - Sign-Out/Discharge Documenting (check all that apply): Patient Departure All imaging exams completed and their final reports reviewed: No Studies - Discharge Plan Condition: Stable Disposition: HOME Prescriptions: Fluticasone NASAL SPRAY 50MCG* [Flonase NASAL SPRAY 50MCG*] 2 spray BOTH NARES DAILY #1 btl Patient Education Materials: Upper Respiratory Infection (ED) Referrals: Emilie Rios MD [Primary Care Provider] - 3 Days Additional Instructions: The rapid strep test performed in the clinic today was negative. Your history and exam are consistent with a viral upper respiratory infection. Viral infections do not respond to antibiotics and are limited to the treatment of symptoms. Viral infections typically run their course in 7-10 days. Drink plenty of fluids to avoid dehydration especially if you are running any fever. Use a saline rinse kit such as Neti Pot or NeilMed at least twice a day to help thin secretions and promote drainage of the sinuses. Use fluticasone (Flonase) nasal spray 2 sprays each nostril once daily. Try using an [id number] decongestant such as Sudafed to help with nasal congestion. Take over the counter acetaminophen (Tylenol) or ibuprofen (Advil, Motrin) according to directions as needed for pain or fever. Use salt water gargles several times a day if you have a sore throat. You may also use Chloraseptic spray or Cepacol lonzenges according to directions which contain a numbing medication and can provide some temporary relief from your sore throat. Follow up with your primary care provider in 3-5 days if symptoms persist. Seek immediate medical attention in the emergency room if you have fever greater than 100.5 F despite taking acetaminophen or ibuprofen, have chest pain , difficulty breathing, are unable to swallow, or have any worsening of symptoms. - Billing Disposition and Condition Condition: STABLE Disposition: Home
== END 2019-02-15 13:03 | disposition home or self-care (01) ==
LOC: UCCORT 12:17
DX: J06.9 Acute upper respiratory infection, unspecified (principal); F17.210 Nicotine dependence, cigarettes, uncomplicated; Z88.1 Allergy status to other antibiotic agents
CPT/HCPCS: 87651; 99211; G0463

== ENCOUNTER 2019-04-17 16:01 | Emergency (ER) | payer OTHER ==
[2019-04-17 17:58] VITALS: BP 111/66
--- NOTE | 2019-04-17 18:27 | UC ---
Ear Complaint HPI - HPI Summary HPI Summary: 28-year-old female presents with complaints of right ear pain for the past week. Reports she has noted some "wax colored" drainage from the ear. States today he started noting some upper respiratory symptoms including mild nasal congestion, runny nose, and mild sore throat. Denies fever, chills, hearing loss, tinnitus, vertigo, dysphagia, or cough. - History of Current Complaint Chief Complaint: UCEar Stated Complaint: EAR PAIN Time Seen by Provider: 04/17/19 17:54 Hx Obtained From: Patient Hx Last Menstrual Period: 04/03 Pain Intensity: 10 - Allergies/Home Medications Allergies/Adverse Reactions: Allergies Allergy/AdvReac Type Severity Reaction Status Date / Time cefprozil Allergy Hives Verified 04/17/19 17:58 levofloxacin Allergy Hives Verified 04/17/19 17:58 Home Medications: Home Medications Acetaminophen [Acetaminophen Extra Strength] 500 mg PO Q4H PRN 04/17/19 [ History Confirmed 04/17/19] Ibuprofen TAB* [Motrin TAB* 600 MG] 600 mg PO Q4H PRN 04/17/19 [History Confirmed 04/17/19] PMH/Surg Hx/FS Hx/Imm Hx Previously Healthy: Yes - Surgical History Surgical History: Yes Surgery Procedure, Year, and Place: , 2009, [facility];. TUBAL LIGATION, JAN 2018 salpingectomy - Family History Known Family History: Positive: Cardiac Disease, Diabetes Negative: Hypertension - Social History Occupation: Employed Full-time Lives: Alone Alcohol Use: Rare Substance Use Type: Marijuana Substance Use Comment - Amount & Last Used: occasionally-last 04/13/19 Smoking Status (MU): Light Every Day Tobacco Smoker Type: Cigarettes Amount Used/How Often: 3-4 cigs/day Length of Time of Smoking/Using Tobacco: started at age 20 Have You Smoked in the Last Year: No - Immunization History Most Recent Influenza Vaccination: 2016 Most Recent Tetanus Shot: UTD Most Recent Pneumonia Vaccination: N/A Review of Systems All Other Systems Reviewed And Are Negative: Yes Constitutional: Negative: Fever, Chills Eyes: Negative: Drainage, Eye Redness ENT: Positive: Sore Throat, Ear Ache, Nasal Discharge. Negative: Sinus Congestion, Sinus Pain/Tenderness Respiratory: Negative: Cough Cardiovascular: Positive: Negative Gastrointestinal: Positive: Negative Genitourinary: Positive: Negative Musculoskeletal: Positive: Negative Neurological: Positive: Negative Is Patient Immunocompromised?: No Physical Exam - Summary Physical Exam Summary: GENERAL APPEARANCE: Well developed, well nourished, alert and cooperative, and appears to be in no acute distress. EYES: Conjunctiva clear. No drainage. EARS: External auditory canals and tympanic membranes clear, hearing grossly intact. NOSE: Mild nasal congestion. No nasal discharge. THROAT: Pharynx normal. No tonsilar inflammation, swelling, exudate, or lesions. Uvula midline. NECK: Neck supple, non-tender without lymphadenopathy. CARDIAC: Normal S1 and S2. No S3, S4 or murmurs. Rhythm is regular. There is no peripheral edema, cyanosis or pallor. Extremities are warm and well perfused. Capillary refill is less than 2 seconds. Peripheral pulses intact. LUNGS: Clear to auscultation without rales, rhonchi, wheezing or diminished breath sounds. ABDOMEN: Positive bowel sounds. Soft, nondistended, nontender. No guarding or rebound. No masses or hepatosplenomegally. MUSKULOSKELETAL: ROM intact to all extremities. No joint erythema or tenderness. Normal muscular development. Normal gait. SKIN: Skin normal color, texture and turgor with no lesions or eruptions. Triage Information Reviewed: Yes Vital Signs: Initial Vital Signs Temp 98.6 F 04/17/19 17:50 Pulse 62 04/17/19 17:50 Resp 18 04/17/19 17:50 BP 111/66 04/17/19 17:50 Pulse Ox 99 04/17/19 17:50 Vital Signs Reviewed: Yes Ear Complaint Course/Dx - Course Course Of Treatment: 28-year-old female presents with complaints of right ear pain for the past week. Reports she has noted some "wax colored" drainage from the ear. States today he started noting some upper respiratory symptoms including mild nasal congestion, runny nose, and mild sore throat. Denies fever, chills, hearing loss, tinnitus, vertigo, dysphagia, or cough. Afebrile. Vital signs stable. Patient's exam was overall unremarkable except for some mild nasal congestion. Discussed with the patient that with no evidence of an ear infection her pain was likely due to some eustachian tube dysfunction. Recommending that she start on fluticasone nasal spray 2 sprays each nostril once daily and use over- the-counter analgesics as needed for pain. Patient is to follow-up with your nose and throat in one week if symptoms are not improving. Anticipatory guidance warning symptoms were reviewed with the patient. Verbalizes understanding and agrees with plan of care. - Differential Dx/Diagnosis Differential Diagnosis/HQI/PQRI: Otitis Externa, Otitis Media, Perforated TM, URI Provider Diagnosis: Eustachian tube dysfunction Discharge ED - Sign-Out/Discharge Documenting (check all that apply): Patient Departure All imaging exams completed and their final reports reviewed: No Studies - Discharge Plan Condition: Stable Disposition: HOME Patient Education Materials: Serous Otitis Media (ED) Referrals: Emilie Rios MD [Primary Care Provider] - Stanley Mora MD [Medical Doctor] - 7 Days (You can call [phone] to schedule an appointment in our [place] office.) Additional Instructions: I did not see any evidence of an ear infection on examination. I suspect that your ear pain may be related to some eustachian tube dysfunction. Start using your fluticasone nasal spray 2 sprays each nostril once daily. Take acetaminophen (Tylenol) or ibuprofen (Advil, Motrin) according to directions as needed for pain. Follow-up with the ears, nose, throat specialist in 7 days if symptoms are not improving. Call for an appointment. Seek immediate medical attention in the emergency room if you develop a fever greater than 100.5 F, have hearing loss, blood or drainage from the ear, or any worsening of symptoms. - Billing Disposition and Condition Condition: STABLE Disposition: Home
== END 2019-04-17 18:40 | disposition home or self-care (01) ==
LOC: UCCORT 16:01
DX: H69.91 Unspecified Eustachian tube disorder, right ear (principal); R09.81 Nasal congestion; J02.9 Acute pharyngitis, unspecified; F17.210 Nicotine dependence, cigarettes, uncomplicated; Z88.8 Allergy status to other drugs, medicaments and biological substances
CPT/HCPCS: 99211; G0463

== ENCOUNTER 2019-05-05 14:13 | Emergency (ER) | payer OTHER ==
[2019-05-05 14:43] VITALS: BP 113/80
--- NOTE | 2019-05-05 15:12 | UC ---
Throat Pain/Nasal Yuri HPI - HPI Summary HPI Summary: Patient is a 28yo female presenting with sore throat, chest congestion, intermittently productive cough x4 days. Patient also notes intermittent headache and fever of 101 two days ago. Patient notes mild nasal congestion. Denies ear pain. Denies chest pain and SOB. Notes intermittent wheezing. Does note h/o asthma and is a smoker. Denies chills. Denies decreased appetite and fluid intake. Notes having an inhaler but not needing to use it. - History of Current Complaint Chief Complaint: UCRespiratory Stated Complaint: COUGH/SINUSES Hx Obtained From: Patient Hx Last Menstrual Period: current Onset/Duration: Gradual Onset, Lasting Days Pain Intensity: 0 - Allergies/Home Medications Allergies/Adverse Reactions: Allergies Allergy/AdvReac Type Severity Reaction Status Date / Time cefprozil Allergy Hives Verified 05/05/19 14:43 levofloxacin Allergy Hives Verified 05/05/19 14:43 Home Medications: Home Medications Guaifen/Phenyleph/Acetaminophn [Tylenol Sinus Severe Caplet] 1 each PO ONCE 10/17 [History Confirmed 05/05/19] PMH/Surg Hx/FS Hx/Imm Hx Respiratory History: Asthma - Surgical History Surgical History: Yes Surgery Procedure, Year, and Place: , 2009, [facility];. JAN 2018 salpingectomy - Family History Known Family History: Positive: Cardiac Disease, Diabetes Negative: Hypertension - Social History Alcohol Use: Rare Substance Use Type: Marijuana Substance Use Comment - Amount & Last Used: occasionally Smoking Status (MU): Light Every Day Tobacco Smoker Type: Cigarettes Amount Used/How Often: 3-4 cigs/day Length of Time of Smoking/Using Tobacco: started at age 20 Have You Smoked in the Last Year: Yes - Immunization History Most Recent Influenza Vaccination: 2016 Most Recent Tetanus Shot: UTD Most Recent Pneumonia Vaccination: N/A Review of Systems All Other Systems Reviewed And Are Negative: Yes Constitutional: Positive: Fever - "101 two days ago". Negative: Chills, Fatigue ENT: Positive: Sore Throat, Sinus Congestion Respiratory: Positive: Cough - intermittent productive, Other - intermittent wheezing. Negative: Shortness Of Breath Cardiovascular: Positive: Negative. Negative: Chest Pain Gastrointestinal: Positive: Negative Musculoskeletal: Positive: Negative Neurological: Positive: Headache Physical Exam Triage Information Reviewed: Yes Appearance: Well-Appearing, No Pain Distress, Well-Nourished Vital Signs: Initial Vital Signs Temp 98.7 F 05/05/19 14:41 Pulse 86 05/05/19 14:41 Resp 17 05/05/19 14:41 BP 113/80 05/05/19 14:41 Pulse Ox 100 05/05/19 14:41 Lab Results 05/05/19 05/05/19 Range/Units 15:17 15:19 Influenza A (Rapid) Negative (Negative) Influenza B (Rapid) Negative (Negative) Group A Strep Rapid Negative (Negative) Vital Signs Reviewed: Yes Eyes: Positive: Conjunctiva Clear ENT: Positive: Hearing grossly normal, Pharyngeal erythema, TMs normal, Uvula midline. Negative: Nasal congestion, Nasal drainage, Tonsillar swelling, Tonsillar exudate, Sinus tenderness Neck exam: Normal Neck: Positive: Supple, Nontender, No Lymphadenopathy Respiratory: Positive: Lungs clear, Normal breath sounds, No respiratory distress. Negative: Crackles, Rhonchi, Stridor, Wheezing Cardiovascular Exam: Normal Cardiovascular: Positive: RRR Neurological: Positive: Alert Psychological: Positive: Age Appropriate Behavior Skin Exam: Normal Throat Pain/Nasal Course/Dx - Course Course Of Treatment: Negative rapid strep and flu tests. Discussed viral illness and to continue with symptomatic treatment including use of inhaler as needed and to refrain from smoking while symptoms present. Patient voiced understanding and agreed with treatment plan. - Differential Dx/Diagnosis Provider Diagnosis: URI (upper respiratory infection), Acute bronchitis Discharge ED - Sign-Out/Discharge Documenting (check all that apply): Patient Departure All imaging exams completed and their final reports reviewed: No Studies - Discharge Plan Condition: Stable Disposition: HOME Patient Education Materials: Upper Respiratory Infection (ED), Acute Bronchitis (ED) Forms: *Work Release Referrals: Emilie Rios MD [Primary Care Provider] - Additional Instructions: As discussed, urinary rapid strep and flu tests were negative today. Your symptoms are likely caused by a virus and should resolve on their own with time. Continue to use your inhaler as needed for shortness of breath and wheezing. You may continue with Tylenol and/or ibuprofen for relief of pain and fever. Refrain from smoking while symptoms are present and get plenty of rest and fluids. Follow-up with your PCP if symptoms do not resolve within 7 days. Go to the emergency room with any new or worsening symptoms. - Billing Disposition and Condition Condition: STABLE Disposition: Home - Attestation Statements Provider Attestation: I was available for consult. This patient was seen by the STEVE. The patient was not presented to, seen by, or examined by me. -Azar
[2019-05-05 15:31] LABS: Influenza A Molecular NEGATIVE (Negative); Influenza B Molecular NEGATIVE (Negative)
== END 2019-05-05 15:40 | disposition home or self-care (01) ==
LOC: UCCORT 14:13
DX: J20.9 Acute bronchitis, unspecified (principal); J06.9 Acute upper respiratory infection, unspecified; J45.909 Unspecified asthma, uncomplicated; J02.9 Acute pharyngitis, unspecified; F17.210 Nicotine dependence, cigarettes, uncomplicated; Z88.1 Allergy status to other antibiotic agents
CPT/HCPCS: 87651; 99211; G0463

== ENCOUNTER 2019-07-12 14:18 | Emergency (ER) | payer OTHER ==
--- OUTSIDE RECORDS SUMMARY | 2019-07-12 14:25 | XMS REPORT | Continuity of Care Document ---
:1990 External Reference #:[id number] Author Name Monique Vieira PA Address [address] 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 Problems Active Problems Provider Date Sprain of ankle Monique Vieira PA Onset: 06/06/2019 Social History Type Date Description Comments Sex Unknown Tobacco Use Start: Unknown Never Smoked Cigarettes Smoking Status Reviewed: 06/06/19 Never Smoked Cigarettes ETOH Use Denies alcohol use Allergies, Adverse Reactions, Alerts Active Allergies Reaction Severity Comments Date Cefprozil hives 07/04/2010 Flu Virus Vaccine vomitting 07/04/2010 Levaquin hives 07/04/2010 Codeine vomitting 07/04/2010 Medications Active Medications SIG Qnty Indications Ordering Provider Date Ibu-200 800mg every 6 Unknown 200mg Tablets hours as needed Immunizations CPT Code Status Date Vaccine Lot # [id number] Given 08/18/2005 Tetnus Injection Vital Signs Date Vital Result Comment 06/27/2019 12:55pm BP Systolic Sitting Right Arm 126 mmHg BP Diastolic Sitting Right Arm 76 mmHg 06/06/2019 11:13am BP Systolic Sitting Right Arm 93 mmHg BP Diastolic Sitting Right Arm 51 mmHg Body Temperature 98.0 F Heart Rate 51 /min Respiratory Rate 20 /min Height 61 inches 5'1" [place] body weight in kilograms 48 kg O2 % BldC Oximetry 99 % Results Description No Information Available Procedures Description No Information Available Medical Devices Description No Information Available Encounters Type Date Location Provider Dx Diagnosis Office Visit 06/27/2019 Orthopaedic Office Monique Vieira, S93.402D Sprain of 1:00p PA unspecified ligament of left ankle, subs encntr M25.572 Pain in left ankle and joints of left foot Office Visit 06/06/2019 11:15a Orthopaedic Office Monique Vieira, M25.572 Pain in left PA ankle and joints of left foot S93.402A Sprain of unspecified ligament of left ankle, init encntr Assessments Date Code Description Provider 06/27/2019 S93.402D Sprain of unspecified ligament of left Dariel, Monique, PA ankle, subsequent encounter 06/27/2019 M25.572 Pain in left ankle and joints of left Dariel, Monique, PA foot 06/06/2019 M25.572 Pain in left ankle and joints of left Dariel, Monique, PA foot 06/06/2019 S93.402A Sprain of unspecified ligament of left Dariel, Monique, PA ankle, initial encounter 01/01/2019 N39.0 Urinary tract infection, site not Xochitl Ames M.D. specified 01/01/2019 B96.20 Unspecified Escherichia coli [E. coli] Xochitl Ames M.D. as the cause of diseases classified elsewhere 01/01/2019 K31.84 Gastroparesis Xochitl Ames M.D. 01/01/2019 Z87.440 Personal history of urinary (tract) Xochitl Ames M.D. infections 12/31/2018 N39.0 Urinary tract infection, site not Xochitl Ames M.D. specified 12/31/2018 B96.20 Unspecified Escherichia coli [E. coli] Xochitl Ames M.D. as the cause of diseases classified elsewhere 12/31/2018 K31.84 Gastroparesis Xochitl Ames M.D. 12/31/2018 Z87.440 Personal history of urinary (tract) Xochitl Ames M.D. infections 12/30/2018 R10.11 Right upper quadrant pain Xochitl Ames M.D. 12/30/2018 R30.0 Dysuria Xochitl Ames M.D. 12/30/2018 R31.9 Hematuria, unspecified Xochitl Ames M.D. Plan of Treatment 06/27/2019 - DarielMonique, PAS93.402D Sprain of unspecified ligament of left ankle, subsequent encounterComments:She is doing better with just mild discomfort. I recommended physical therapy however she is unableto do this. I have explained some home exercises that she can do. She'll return to regular shoe wear as tolerated. Activities as tolerated. Follow up on an as-needed basis.M25.572 Pain in left ankle and joints of left footAllFollow up:prn Functional Status Description No Information Available Mental Status Description No Information Available Referrals Description No Information Available
--- OUTSIDE RECORDS SUMMARY | 2019-07-12 14:25 | XMS REPORT | Continuity of Care Document ---
:1990 External Reference #:[id number] Author Name Monique Vieira PA Address [address] 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 Problems Active Problems Provider Date Sprain of [...] CPT Code Status Date Vaccine Lot # [id number] Given 08/18/2005 Tetnus Injection Vital Signs Date Vital Result Comment 06/06/2019 11:13am BP Systolic Sitting Right Arm 93 mmHg BP Diastolic Sitting Right Arm 51 mmHg Body Temperature 98.0 F Heart Rate 51 /min Respiratory Rate 20 /min Height 61 inches 5'1" [place] body weight in kilograms 48 kg O2 % BldC Oximetry 99 % 07/04/2010 11:29am Height 61 inches 5'1" Weight 130.00 lb BMI (Body Mass Index) 24.6 kg/m2 Height Percentile 10 % Weight Percentile 57th Results Description No Information Available Procedures Description No Information Available Medical Devices Description No Information Available Encounters Type Date Location Provider Dx Diagnosis Office Visit 06/06/2019 Orthopaedic Office Monique Vieira, S93.402A Sprain of 11:15a PA unspecified ligament of left ankle, init encntr M25.572 Pain in left ankle and joints of left foot Assessments Date Code Description Provider 06/06/2019 S93.402A Sprain of unspecified ligament of left Monique Vieira PA ankle, initial encounter 06/06/2019 M25.572 Pain in left ankle and joints of left Monique Vieira PA foot 01/01/2019 N39.0 Urinary tract infection, site not [...] unspecified Xochitl Ames M.D. Plan of Treatment No Information Available Functional Status Description No Information Available Mental Status Description No Information Available Referrals Description No Information Available
--- NOTE | 2019-07-12 15:15 | UC ---
UC General HPI - HPI Summary HPI Summary: Since yesterday + freq /urg / dysuria + bladder discomfort. No rash. Hx uti's, feels like uti. 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 No fever / chills no cvat, but a little achy. She is concerned that she may be developing or will develop bact vaginosis, as this typically has occurred in concert with uti's in the past. But no vag d/c at this time. - History of Current Complaint Stated Complaint: URNIARY Time Seen by Provider: 07/12/19 15:13 Hx Obtained From: Patient Hx Last Menstrual Period: current - Allergy/Home Medications Allergies/Adverse Reactions: Allergies Allergy/AdvReac Type Severity Reaction Status Date / Time cefprozil Allergy Hives Verified 07/12/19 15:24 levofloxacin Allergy Hives Verified 07/12/19 15:24 PMH/Surg Hx/FS Hx/Imm Hx Previously Healthy: Yes - see hpi - Surgical History Surgical History: Yes Surgery Procedure, Year, and Place: , 2009, [facility];. JAN 2018 salpingectomy - Family History Known Family History: Positive: Cardiac Disease, Diabetes Negative: Hypertension - Social History Alcohol Use: Rare Substance Use Type: Marijuana Substance Use Comment - Amount & Last Used: occasionally Smoking Status (MU): Light Every Day Tobacco Smoker Type: Cigarettes Amount Used/How Often: 3-4 cigs/day Length of Time of Smoking/Using Tobacco: started at age 20 Have You Smoked in the Last Year: Yes - Immunization History Most Recent Influenza Vaccination: 2016 Most Recent Tetanus Shot: UTD Most Recent Pneumonia Vaccination: N/A Review of Systems All Other Systems Reviewed And Are Negative: Yes Constitutional: Positive: Negative Skin: Positive: Negative Eyes: Positive: Negative ENT: Positive: Negative Respiratory: Positive: Negative Cardiovascular: Positive: Negative Gastrointestinal: Positive: Other - see hpi Genitourinary: Positive: Other - see hpi Motor: Positive: Negative Neurovascular: Positive: Negative Musculoskeletal: Positive: Negative Neurological/Mental Status: Positive: Negative Psychological: Positive: Negative Is Patient Immunocompromised?: No Physical Exam Triage Information Reviewed: Yes Appearance: Well-Appearing - looks tired bu t nad, Well-Nourished Vital Signs Reviewed: Yes Eye Exam: Normal ENT Exam: Normal Neck exam: Normal Respiratory Exam: Normal Cardiovascular Exam: Normal Abdominal Exam: Normal - subj achy bladder region Pelvic Exam: Positive: Other - declines pelvic examination Musculoskeletal Exam: Normal Neurological Exam: Normal - nonfocal Psychological Exam: Normal - nad Skin Exam: Normal - nondiaphoretic no visible or reported rash Course/Dx - Course Course Of Treatment: urine cx sent most recent [place] at [place] [facility] she reports + E coli. will start doxycycline Will sent topical metronidazole, aware to be checked if any new issues. rx diflucan per pt request, as needed for vag yeast infection questions as posed answered to the best of my ability. - Diagnoses Provider Diagnosis: UTI (urinary tract infection) Discharge ED - Sign-Out/Discharge Documenting (check all that apply): Patient Departure All imaging exams completed and their final reports reviewed: No Studies - Discharge Plan Condition: Stable Disposition: HOME Prescriptions: DOXYcycline CAP(*) [DOXYcycline 100MG CAP(*)] 100 mg PO BID #14 cap Fluconazole 150 MG TAB* [Diflucan 150 MG TAB*] 150 mg PO DAILY #2 tablet metroNIDAZOLE VAGINAL 0.75%* 1 applic VAGINAL BEDTIME 7 Days #1 tube Patient Education Materials: Bacterial Vaginosis (ED), Urinary Tract Infection in Women (ED) Forms: *Work Release Referrals: Emilie Rios MD [Primary Care Provider] - Additional Instructions: Hydrate. Urine culture sent. You may call in 3 days to check on the results. Please seek medical attention for worse or new issues. Please follow up with your primary care physician, per routine. - Billing Disposition and Condition Condition: STABLE Disposition: Home
[2019-07-12 15:28] VITALS: BP 102/64
--- NOTE | 2019-07-15 07:29 | UC ---
- Progress Note Progress Note: + E. coli UTI, which might not be treated by the doxy. Call to see if symptoms are still persistent. If so, might need change of treatment. If symptoms are resolved, no need to change treatment. Course/Dx - Diagnoses Provider Diagnoses: UTI (urinary tract infection) Discharge ED - Sign-Out/Discharge Documenting (check all that apply): Post-Discharge Follow Up All imaging exams completed and their final reports reviewed: No Studies - Discharge Plan Condition: Stable Disposition: HOME Prescriptions: DOXYcycline CAP(*) [DOXYcycline 100MG CAP(*)] 100 mg PO BID #14 cap Fluconazole 150 MG TAB* [Diflucan 150 MG TAB*] 150 mg PO DAILY #2 tablet metroNIDAZOLE VAGINAL 0.75%* 1 applic VAGINAL BEDTIME 7 Days #1 tube Patient Education Materials: Bacterial Vaginosis (ED), Urinary Tract Infection in Women (ED) Forms: *Work Release Referrals: Emilie Rios MD [Primary Care Provider] - Additional Instructions: Hydrate. Urine culture sent. You may call in 3 days to check on the results. Please seek medical attention for worse or new issues. Please follow up with your primary care physician, per routine. - Billing Disposition and Condition Condition: STABLE Disposition: Home
== END 2019-07-12 16:08 | disposition home or self-care (01) ==
LOC: UCCORT 14:18
DX: N39.0 Urinary tract infection, site not specified (principal); Z88.1 Allergy status to other antibiotic agents; F17.210 Nicotine dependence, cigarettes, uncomplicated
CPT/HCPCS: 87077; 87086; 87186; 99212; G0463